=== PATIENT | male | born 1995 | race Caucasian/White ===

== ENCOUNTER → 2016-09-19 | Outpatient (CLI) | payer OTHER ==
--- NOTE | 2016-09-20 10:26 | DI ---
XR KNEE CMPT 4 OR MORE VWS,09/19/2016 4:10 PM: Clinical History: Acute right knee pain Previous Exam: None at this facility. Findings: 4 views of the right knee are obtained, and demonstrate anatomic alignment without fractures. The prasanna nt spaces are preserved. There is no evidence of knee joint effusion. Impression: Normal right knee.
== END ==
LOC: ORTHO 16:22
PROVIDERS: ATTEND Orthopaedic Surgery
DX: M25.561 Pain in right knee (principal)
CPT/HCPCS: 73564

== ENCOUNTER → 2016-09-30 | Outpatient (CLI) | payer OTHER ==
--- NOTE | 2016-09-30 14:08 | DI ---
MRI LOW EXTREMITY JNT W/O CN,09/30/2016 12:56 PM: Clinical History: Right knee injury. Previous Exam: None at this facility. Findings: Multiplanar MR images are obtained through the right knee without contrast, and demonstrates anatomic alignment without fractures. Articular cartilage is preserved. The anterior cruciate ligament is intact. The posterior cruciate ligament demonstrates some mild redundancy without a tear. Medial and lateral collateral ligaments are also intact. The popliteus tendon is intact. The major vascular flow voids are unremarkable. Signal within the musculature is unremarkable. There is no evidence of Jung's cyst. The surrounding subcutaneous fat is unremarkable. The quadriceps and patellar tendons are normal. Impression: 1. No intra-articular pathology.
== END ==
LOC: MRI 12:53
PROVIDERS: ATTEND Orthopaedic Surgery
DX: M25.561 Pain in right knee (principal)
CPT/HCPCS: 73721

== ENCOUNTER 2016-11-04 16:57 | Emergency (ER) | payer SELFPAY ==
[2016-11-04 17:14] VITALS: RESP 24; TEMP 98.3
[2016-11-04] MEDS ORDERED: NORMAL SALINE 10 ML SYRINGE FLUSH IVP PRN (17:14)
[2016-11-04] MEDS ORDERED: Sodium Chloride 0.9% 1,000 ML PRIMARY IV ONE (17:14)
[2016-11-04] MEDS ORDERED: ASPIRIN 81 MG (BABY) CHEWABLE TABLET PO ONE (17:14)
[2016-11-04] MEDS ORDERED: KETOROLAC 30 MG/1 ML VIAL IVP ONE (17:14)
--- NOTE | 2016-11-04 18:05 | EKG ---
[address] [address] Measurements Intervals Bird In Hand Rate: 73 P: 77 NM: 144 QRS: 92 QRSD: 100 T: 57 QT: 374 QTc: 400 Interpretive Statements SINUS RHYTHM WITH SINUS ARRHYTHMIA BORDERLINE RIGHT AXIS DEVIATION [QRS AXIS > 90] No previous ECG available for comparison Electronically Signed On 11-05-16 08:03:20 MDT by Miguel Garcia MD [email or web address]
[2016-11-04 18:06] LABS: HEMOGLOBIN 13.9 g/dL (14.0-18.0); RED BLOOD COUNT 4.48 10^6/uL (4.70-6.10)
[2016-11-04 18:07] LABS: BASOPHILS # (AUTO) 0.02 10*3/UL; BASOPHILS % (AUTO) 0.2 % (0-1); EOSINOPHILS # (AUTO) 0.06 10*3/UL; EOSINOPHILS % (AUTO) 0.7 % (0-8); HEMATOCRIT 38.3 % (42.0-52.0); LYMPHOCYTES # (AUTO) 2.52 10*3/uL; MEAN CORPUSCULAR HGB CONC 36.3 g/dL (33-37); MEAN CORPUSCULAR VOLUME 85.5 FL (80-90); MEAN PLATELET VOLUME 10.2 FL (7.4-12.2); MONOCYTES # (AUTO) 0.91 10*3/UL (0.3-0.8); MONOCYTES % (AUTO) 10.5 % (5-15); NEUTROPHILS % (AUTO) 59.1 % (50-80); PLATELET MORPHOLOGY COMMENT NORMAL MORPHOLOGY (NORM); RBC MORPHOLOGY COMMENT NORMAL MORPHOLOGY (NORM); WBC MORPHOLOGY COMMENT NORMAL MORPHOLOGY (NORM)
[2016-11-04 18:16] LABS: BLOOD UREA NITROGEN 11 mg/dL (7-22); CALCIUM 9.2 mg/dL (8.7-10.7); EST GLOMERULAR FILTRATION > 60 (>60 ml/min/1.73m(2))
[2016-11-04 18:30] LABS: TROPONIN I < 0.012 ng/mL (< 0.040)
[2016-11-04] MEDS ORDERED: SILVER SULFADIAZINE 1% 25 GM CREAM TOPICAL ONE (20:27)
[2016-11-04] MEDS ORDERED: SILVER SULFADIAZINE 1% 25 GM CREAM TOPICAL SCH (20:45)
--- NOTE | 2016-11-05 06:32 | DI ---
CT CTA CHEST NONCORONARY W/WO,11/04/2016 6:35 PM: Clinical History: Elevated d-dimer. Previous Exam: None at this facility. Findings: Multiple helically acquired CT images are obtained through the chest following the intravenous admini stration of contrast, and demonstrate normal-appearing pulmonary arteries without filling defect nor truncation to suggest pulmonary embolism. There is some mild motion artifact which limits evaluation. The upper abdomen is unremarkable. Skeletal structures are also unremarkable. The lungs are clear. There is no mediastinal lymphadenopathy. Impression: No evidence of pulmonary embolism.
--- NOTE | 2016-11-05 07:03 | PDOC ---
Chest Pain HPI - General Chief Complaint: Chest Pain Stated Complaint: chest pain post sunburn Date Seen by Provider: 11/04/16 Time Seen by Provider: 17:05 Source: Patient, Other (Mother) Exam Limitations: POSITIVE: No limitations Treatment Prior to Arrival: REPORTS: None Nurse's Notes Reviewed & Considered: Yes - History of Present Illness Initial Comments: The patient is a 21-year-old male. He states that yesterday he spent a prolonged period of time in the sun at [facility] and sustained a severe sunburn to the anterior aspect of his right ankle with some blistering. He also sustained a second-degree sunburn to his back. He has prominent sunburn to his torso and lower extremities. He states he [place] in the water and may have injured his right ankle. He also complains of chest pain for the past few hours, especially with inspiration. Body Location Affected: REPORTS: Lower Extremity (R) (Right ankle), Chest ( Chest pain as above), Other (As above) Timing: REPORTS: Constant (As above) Duration: >24 hours (About 24 hours, approximately) Severity: Moderate Persistent/Worse since (date): 11/03/16 Persistent/Worse since (time): 17:00 Context: REPORTS: Other (As above) Quality: REPORTS: "Pain" (Pleuritic chest pain; right ankle pain and swelling), Other (Severe sunburn over back lower extremities and chest, especially right ankle, anterior aspect.) Radiation: REPORTS: None Associated Symptoms: REPORTS: Hurts to Breathe. DENIES: Nausea, Vomiting, Diaphoresis, Shortness of Breath, Palpitations, Productive Cough (blood), Productive Cough (sputum), Weakness, Dizziness Modifying Factors: improves with: Deep breathing Similar Symptoms Previously: No Recently seen/treated/hospitalized: No Any Prior Injuries Related to Current Complaint?: No - Patient Home Medications Home Medications: Home Medications Ibuprofen 800 mg ORAL TID PRN tab 04/14/12 - Patient Allergies Allergies/Adverse Reactions: Allergies Allergy/AdvReac Type Severity Reaction Status Date / Time No Known Allergies Allergy Verified 11/04/16 17:05 Past Medical History - jozef RHODES History: Denies History Cardiovascular History: Denies History Respiratory History: Denies History Gastrointestinal History: Denies History Genitourinary History: Other (please comment) Additional Genitourinary History: Hx of orchioplexy. Endocrine History: Denies History Musculoskeletal History: Other (please comment) Additional Musculoskeletal History: History of right shoulder repair for subloxations. Neurological History: Denies History Blood Disorders: Denies History Psychiatric History: Denies History Cancer History: Denies History In Past Year Been Physically Harmed or Verbally Threatened: No History of MDRO: No Tobacco Use: Former Smoker Alcohol Use: Occasionally Substance Use Type: None Previous Surgical History: Yes Type / Date of Surgery: Right shoulder repair and orchiopexy. Significant Family History: Asthma, COPD, Diabetes, Heart disease, Hypertension , Lung disease Past Medical History Reviewed: Reviewed - No Changes ROS - Limitations ROS Limitations: No Limitations Constitution: REPORTS: Denies Symptoms Cardiovascular: REPORTS: Denies Cardiac Symptoms Respiratory: REPORTS: Denies Resp Symptoms Neurological: REPORTS: Denies Neuro Symptoms Gastrointestinal: REPORTS: Denies GI Symptoms Endocrine: REPORTS: Denies Symptoms Musculoskeletal: REPORTS: Denies MS Symptoms Genitourinary: REPORTS: Denies Symptoms Eyes: REPORTS: Denies Symptoms ENT: REPORTS: Denies Symptoms Skin: REPORTS: Other (Blistering with second degree sunburn to back and anterior aspect right ankle; prominent erythema to the torso and lower extremities due to sunburn) Lympathic: REPORTS: Denies Lympathic Symptoms Immunologic: POSITIVE: Denies Symptoms Psychiatric: POSITIVE: Denies Psych Symptoms Chest Pain PE - General Appearance General Appearance: REPORTS: Alert, Cooperative, No Acute Distress. DENIES: No Evidence of Trauma (Sunburn as above. Some swelling to right ankle) - HEENT HEENT: POSITIVE: Head Inspection Nml, Eyes Inspection Nml, Ears Inspection Nml, Nose Inspection Nml, Oral/Dental Inspect. Nml, Pharynx Inspect. Nml, PERRL, EOMI - Neck Neck: REPORTS: Normal Inspection, No Carotid Bruit - Respiratory Respiratory: REPORTS: No Respiratory Distress, Breath Sounds Normal, Chest Non- Tender - Cardiovascular Cardiovascular: REPORTS: Regular Rate and Rhythm, Heart Sounds Normal, Equal Pulses, Strong Pulses, No Murmur, No Gallop, No Friction Rub, No JVD Peripheral Pulses: Radial (R): 2+, Radial (L): 2+ - Abdomen Abdomen: Soft: (All Quadrants), Normal Bowel Sounds: (All Quadrants), Denies Tenderness: (All Quadrants), No Splenomegaly: (All Quadrants), No Hepatomegaly: (All Quadrants), No Guarding: (All Quadrants), No Rebound: (All Quadrants), No Palpable Pulse: (All Quadrants), No Palpabale Mass: (All Quadrants), No Distention: (All Quadrants), No Rigidity: (All Quadrants) - Skin Skin: REPORTS: Other (Prominent sunburn with some blistering to the back and anterior aspect of right ankle. Prominent erythema to torso and lower extremities) - Extremities Extremity: Non-Tender: (LLE), (LUE), (RUE), Normal ROM: (All Extremities), Normal Inspection: (LLE), (LUE), (RUE), Edema / Swelling: (RLE) (left ankle), Tender: (RLE) (left ankle) Additional Extremities Details: Sunburn as above. Some discomfort on palpation lateral aspect of right ankle with some swelling, which is most likely secondary to second-degree sunburn to the anterior aspect of the ankle. 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 Chest x-ray normal and CTA chest gotten because of mildly elevated d-dimer also read by radiologist as normal. Lab Results Reviewed: Yes Lab Results:: Laboratory Results 11/04/16 Range/Units 18:03 WBC 8.64 (4.8-10.8) 10^3/uL RBC 4.48 L (4.70-6.10) 10^6/uL Hgb 13.9 L (14.0-18.0) g/dL Hct 38.3 L (42.0-52.0) % MCV 85.5 (80-90) FL MCH 31.0 (27-31) PG MCHC 36.3 (33-37) g/dL RDW Std Deviation 41.6 (39-50) fL RDW Coeff of Lars 13.6 (11.5-14.5) % Plt Count 160 (140-350) 10*3/uL MPV 10.2 (7.4-12.2) FL Immature Gran % (Auto) 0.3 (0-5) % Neut % (Auto) 59.1 (50-80) % Lymph % (Auto) 29.2 (10-50) % [place] % (Auto) 10.5 (5-15) % Eos % (Auto) 0.7 (0-8) % Baso % (Auto) 0.2 (0-1) % Immature Gran # (Auto) 0.03 10*3/UL Neut # (Auto) 5.10 10*3/UL Lymph # (Auto) 2.52 10*3/uL [place] # (Auto) 0.91 H (0.3-0.8) 10*3/UL Eos # (Auto) 0.06 10*3/UL Baso # (Auto) 0.02 10*3/UL WBC Morphology Comment Normal morphology (NORM) Plt Morphology Comment Normal morphology (NORM) RBC Morph Comment Normal morphology (NORM) D-Dimer 0.63 H (0.00-0.59) mg/L Sodium 137 (135-145) meq/L Potassium 3.6 L (3.8-5.2) meq/L Chloride 102 (98-112) meq/L Carbon Dioxide 25 (23-33) meq/L Anion Gap 10 (5-20) BUN 11 (7-22) mg/dL Creatinine 1.0 (0.70-1.50) mg/dL Estimated GFR > 60 (>60 ml/min/1.73m(2)) BUN/Creatinine Ratio 11.00 (6-20) Glucose 84 (78-110) mg/dL Calculated Osmolality 281.0 (267-292) mOsm/kg Calcium 9.2 (8.7-10.7) mg/dL Total Bilirubin 2.1 H (0.3-1.2) mg/dL AST 22 (21-57) IU/L ALT 25 (21-72) IU/L Alkaline Phosphatase 59 (38-126) IU/L CK-MB (CK-2) 0.50 (0.00-5.00) NG/ML Troponin I < 0.012 (< 0.040) ng/mL Total Protein 7.1 (6.1-8.0) g/dL Albumin 4.0 (3.5-4.8) g/dL Globulin 3.1 (2.50-4.10) g/dL Albumin/Globulin Ratio 1.20 L (1.3-2.0) mg/g EKG Interpreted/Reviewed By Me:: Yes (normal) EKG Interpretation:: POSITIVE: Normal Sinus Rhythm, Normal Rate, Normal Intervals, Normal Elbert, Normal QRS, Normal ST/T - Patient's Progress Pain Medication Addressed: POSITIVE: Yes (Recommended Advil or Tylenol) Re-Examine Time: 20:20 Re-Examine Comment: Results of x-ray and laboratory studies discussed. Silvadene dressing to second-degree alejandra. Status: POSITIVE: Unchanged, Re-Examined Quality Measure Initiative: CP/AMI: POSITIVE: EKG, ASA - Consult Counseled: POSITIVE: Patient, Family (Mother), RE: Lab Results, RE: Radiology Results, RE: DX, RE: Need for F/U Patient Care Time - Estimated PCT Patient Care Time (In Minutes): 60 Vital Signs - VS Reviewed Vital Signs Reviewed: Yes Discharge Clinical Impression: Pleurisy, Sunburn of second degree Discharge Disposition: Discharged to Home Condition: Good Patient Instructions Given at Discharge: Pleurisy (ED), Second Degree Burn (ED) Additional Instructions: X-ray of your right ankle is normal; I think your swelling is likely due to a sprain on top of a bad sunburn. Please apply Silvadene to the area of blistering. Elevate her leg. I think you probably have some pleurisy causing your chest pain. There is no signs of any lung blood clots or cardiac problems. Tylenol or Advil for discomfort. Stay out of the sun for a couple of days. Return anytime if condition worsens. Follow-up with your primary care provider. Follow Up With: NONE,NONE [Primary Care Provider] - (Instructions as above. Follow-up with your primary care provider. Return here as necessary.)
--- NOTE | 2016-11-05 08:46 | DI ---
XR ANKLE COMPLETE MIN 3VW,11/04/2016 5:16 PM: Clinical History: Right ankle pain Previous Exam: None at this facility. Findings: 3 views of the right ankle are obtained, and demonstrate anatomic alignment without fractures. The harley rrounding soft tissues are unremarkable. Impression: No fracture.
--- NOTE | 2016-11-05 08:46 | DI ---
XR CXR 2VW PA/LAT,11/04/2016 5:16 PM: Clinical History: Chest pain Previous Exam: June 23, 2009 Findings: There is no acute soft tissue or bony abnormality. Heart size is normal. Lungs are clear. Mediastinal structures are normal. There are no pulmonary nodules. IMPRESSION: Normal chest x-ray.
== END 2016-11-04 20:45 | disposition home or self-care (01) ==
LOC: ER 16:57
DX: R09.1 Pleurisy (principal); L55.1 Sunburn of second degree; M25.571 Pain in right ankle and joints of right foot; R07.9 Chest pain, unspecified
CPT/HCPCS: 71020; 71275; 73610; 80053; 82553; 84484; 85025; 85379; 93005; 93010; 96374; 99284 ×2; J1885; J7030